=== PATIENT | male | born 1955 | race Native Hawaiian/Other Pacific Islander ===

== ENCOUNTER → 2019-08-27 10:03 | Outpatient (CLI) | payer OTHER | END | disposition short-term general hospital (02) | LOC: AMB 10:03 | DX: R07.89 Other chest pain (principal) | CPT/HCPCS: A0425; A0429 ==

== ENCOUNTER 2019-08-27 10:05 | Emergency (ER) | payer OTHER ==
[~2019-08-27] VITALS: Ht 177.8 cm; Wt 86.2 kg
[2019-08-27 10:05] VITALS: TEMP 98
[2019-08-27 10:55] LABS: SODIUM 138 mmol/L (136-145)
[2019-08-27 11:25] LABS: PLATELET COUNT 283 K/uL (142-355)
[2019-08-27 14:15] VITALS: BP 151/67
== END 2019-08-27 14:15 | disposition short-term general hospital (02) ==
LOC: ED 10:05
PROVIDERS: Student in an Organized Health Care Education/Training Program
DX: J18.9 Pneumonia, unspecified organism (principal); N18.6 End stage renal disease; Z99.2 Dependence on renal dialysis; I10 Essential (primary) hypertension
CPT/HCPCS: 80053; 83605; 83735; 84443; 84484; 85027; 85610; 85730; 87040; 93005; 96365; 96366; 99284; J1956; J3370

== ENCOUNTER 2019-08-27 14:25 | Outpatient (CLI) | payer OTHER | END 2019-08-27 15:53 | disposition short-term general hospital (02) | LOC: AMB 14:25 | DX: J18.9 Pneumonia, unspecified organism (principal); R07.89 Other chest pain; M54.89 Other dorsalgia; N18.6 End stage renal disease; Z99.2 Dependence on renal dialysis; R41.0 Disorientation, unspecified; R11.10 Vomiting, unspecified | CPT/HCPCS: A0425; A0427 ==

== ENCOUNTER 2019-10-01 08:39 | Outpatient (CLI) | payer OTHER | END 2019-10-01 08:40 | disposition short-term general hospital (02) | LOC: AMB 08:39 | DX: R41.82 Altered mental status, unspecified (principal); Z99.2 Dependence on renal dialysis | CPT/HCPCS: A0425; A0427 ==

== ENCOUNTER 2019-10-01 08:53 | Emergency (ER) | payer OTHER ==
[~2019-10-01] VITALS: Ht 177.8 cm; Wt 90.7 kg
[2019-10-01 09:57] LABS: PLATELET COUNT 258 K/uL (142-355)
[2019-10-01 10:27] LABS: SODIUM 139 mmol/L (136-145)
[2019-10-01 11:47] VITALS: TEMP 99
[2019-10-01 18:25] VITALS: BP 147/62
== END 2019-10-01 18:47 | disposition short-term general hospital (02) ==
LOC: ED 08:53
PROVIDERS: Emergency Medicine
DX: J18.9 Pneumonia, unspecified organism (principal); N18.6 End stage renal disease; Z99.2 Dependence on renal dialysis; R94.31 Abnormal electrocardiogram [ECG] [EKG]
CPT/HCPCS: 80053; 83605; 83735; 84484; 85027; 87040; 87077; 87185; 87186; 87205; 87502; 93005; 96365; 99284; J1956

== ENCOUNTER 2019-10-01 18:54 | Outpatient (CLI) | payer OTHER | END 2019-10-01 20:03 | disposition short-term general hospital (02) | LOC: AMB 18:54 | DX: J18.9 Pneumonia, unspecified organism (principal); Z99.2 Dependence on renal dialysis | CPT/HCPCS: A0425; A0427 ==

== ENCOUNTER 2019-11-09 14:33 | Outpatient (CLI) | payer OTHER | END 2019-11-09 20:16 | disposition home or self-care (01) | LOC: CT 14:33 | DX: R41.82 Altered mental status, unspecified (principal); M25.561 Pain in right knee ==

== ENCOUNTER 2020-01-09 13:25 | Outpatient (CLI) | payer OTHER | END 2020-01-09 13:26 | disposition short-term general hospital (02) | LOC: AMB 13:25 | DX: R53.1 Weakness (principal); R11.2 Nausea with vomiting, unspecified; R41.82 Altered mental status, unspecified | CPT/HCPCS: A0425; A0427 ==

== ENCOUNTER 2020-01-09 13:28 | Emergency (ER) | payer OTHER ==
[~2020-01-09] VITALS: Ht 177.8 cm; Wt 78.2 kg
[2020-01-09 13:28] VITALS: TEMP 98.1
[2020-01-09 13:59] LABS: PLATELET COUNT 234 K/uL (142-355)
[2020-01-09 14:11] LABS: POTASSIUM 3.5 mmol/L (3.6-5.2)
[2020-01-09 17:19] VITALS: BP 173/83
== END 2020-01-09 17:19 | disposition home or self-care (01) ==
LOC: ED 13:32
PROVIDERS: Emergency Medicine
DX: K52.89 Other specified noninfective gastroenteritis and colitis (principal); R41.82 Altered mental status, unspecified; Z99.2 Dependence on renal dialysis
CPT/HCPCS: 80053; 85027; 96374; 99283; 99284; J2405

== ENCOUNTER 2020-01-30 14:04 | Outpatient (CLI) | payer OTHER | END 2020-01-30 19:24 | disposition home or self-care (01) | LOC: LAB 14:04 | DX: D64.89 Other specified anemias (principal) | CPT/HCPCS: 85014; 85018 ==

== ENCOUNTER 2020-03-19 15:38 | Outpatient (CLI) | payer OTHER | END 2020-03-19 22:58 | disposition home or self-care (01) | LOC: LAB 15:38 | DX: D64.89 Other specified anemias (principal) | CPT/HCPCS: 85018 ==